=== PATIENT | male | born 2000 | race American Indian/Alaskan Native ===

== ENCOUNTER 2021-08-02 10:39 | Emergency (ER) | payer SELFPAY ==
[2021-08-02] MEDS ORDERED: predniSONE 20 MG TAB PO ONE (13:47)
[2021-08-02] MEDS ORDERED: CYCLOBENZAPRINE 10 MG TAB PO ONE (13:47)
[2021-08-02] MEDS ORDERED: KETOROLAC 30 MG/1 ML INJ IM ONE (13:51)
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
[2021-08-02 16:21] VITALS: BP 128/70
== END 2021-08-02 16:19 | disposition home or self-care (01) ==
LOC: ED 10:39
DX: R07.89 Other chest pain (principal); R10.30 Lower abdominal pain, unspecified; M25.511 Pain in right shoulder; V89.2XXA Person injured in unspecified motor-vehicle accident, traffic, initial encounter; Y93.89 Activity, other specified; Y92.89 Other specified places as the place of occurrence of the external cause; Y99.8 Other external cause status
CPT/HCPCS: 71250; 73030; 74176; 96372; 99284; J1885